=== PATIENT | female | born 1970 | race African-American/Black ===

== ENCOUNTER 2017-03-28 20:14 | Emergency (ER) | payer OTHER ==
[~2017-03-28] VITALS: Ht 157.5 cm; Wt 65.5 kg
[~2017-03-28 20:14] MED LIST: MELO-273 PO; PERCT10 PO
[2017-03-28] MEDS ORDERED: CYCL-309 PO (20:21)
[2017-03-29 00:10] VITALS: BP 129/79
== END 2017-03-29 00:12 | disposition home or self-care (01) ==
LOC: EMS 20:16
DX: S20.212A Contusion of left front wall of thorax, initial encounter (principal); M25.512 Pain in left shoulder; W22.19XA Striking against or struck by other automobile airbag, initial encounter; Y93.89 Activity, other specified; Y92.89 Other specified places as the place of occurrence of the external cause; Y99.8 Other external cause status
CPT/HCPCS: 71020; 99284

== ENCOUNTER 2017-04-25 23:00 | Emergency (ER) | payer OTHER ==
[~2017-04-25] VITALS: Ht 160 cm; Wt 63.5 kg
[~2017-04-25 23:00] MED LIST changes: +CYCL-309 PO
[2017-04-25 23:09] VITALS: BP 127/87
[2017-04-26] MEDS ORDERED: AMOXICILLIN TRIHYDRATE 250 MG/5 ML SUSPENSION ORAL.SYG PO ONE (00:15)
== END 2017-04-26 00:08 | disposition home or self-care (01) ==
LOC: EMS 23:03
DX: K08.89 Other specified disorders of teeth and supporting structures (principal); F17.210 Nicotine dependence, cigarettes, uncomplicated
CPT/HCPCS: 99281